=== PATIENT | male | born 1975 | race Caucasian/White ===

== ENCOUNTER 2017-10-15 16:34 | Inpatient (IN) | END 2017-10-22 20:59 | DRG 871 ==

== ENCOUNTER 2017-10-31 12:38 | Inpatient (IN) | END 2017-11-04 18:19 | DRG 193 ==

== ENCOUNTER 2017-12-23 01:12 | Emergency (ER) | END 2017-12-23 05:30 | disposition short-term general hospital (02) ==

== ENCOUNTER 2018-01-24 18:03 | Emergency (ER) | END 2018-01-25 00:54 | disposition home or self-care (01) ==

== ENCOUNTER 2018-02-03 15:33 | Inpatient (IN) | END 2018-02-08 21:55 | DRG 872 ==